=== PATIENT | male | born 1955 | race Caucasian/White ===

== ENCOUNTER 2025-01-14 18:09 | Emergency (ER) | payer OTHER ==
[2025-01-14] MEDS ORDERED: Tetracaine 0.5% PF 4 ML BOT ONE (18:58)
[2025-01-14] MEDS ORDERED: Acetaminophen 325 MG TAB ONE (19:24)
== END 2025-01-14 19:51 | disposition home or self-care (01) ==
LOC: NAV ERS 18:09
DX: R51.9 Headache, unspecified (principal); I10 Essential (primary) hypertension; H54.42A3 Blindness left eye category 3, normal vision right eye; R29.703 NIHSS score 3; Z86.69 Personal history of other diseases of the nervous system and sense organs; K21.9 Gastro-esophageal reflux disease without esophagitis; Z79.82 Long term (current) use of aspirin; Z79.899 Other long term (current) drug therapy
CPT/HCPCS: 99284